=== PATIENT | male | born 1980 ===

== ENCOUNTER 2018-02-01 17:48 | Emergency (ER) | payer OTHER ==
[2018-02-01 17:53] VITALS: RESP 16
[2018-02-01] MEDS ORDERED: PROPARACAINE/FLUORESCEIN SOD 100 DROP/5 ML BOTTLE OD STA (18:04)
[2018-02-01] MEDS ORDERED: Tdap Vaccine 0.5 ml Vial (10-64 yrs) IM ONE ×2 (18:09→18:17)
[2018-02-01] MEDS ORDERED: PROPARACAINE/FLUORESCEIN SOD 100 DROP/5 ML BOTTLE ONE (18:12)
--- NOTE | 2018-02-01 18:21 | ED PDOC ---
HPI: Eye Injury/Pain Time Seen by Provider: 02/01/18 17:54 Chief Complaint (Nursing): Eye Problem Chief Complaint (Provider): Right Eye Pain and Right Sided facial Pain History Per: Porcelain Technician ([id number]) History/Exam Limitations: no limitations Onset/Duration Of Symptoms: Days Current Symptoms Are (Timing): Still Present Injury To Eye?: No Severity: None Quality: "Pain" Wears Contact Lens?: No Associated Symptoms: Pain. denies: FB Sensation, Discharge From Eye Additional Complaint(s): 37 year old male presents to the emergency department to be evaluated for right sided facial pain and right eye pain. Patient reports that on Wednesday while playing basketball he was elbowed in the face and has been experiencing worsening pain and swelling ever since. He further states that he has been experiencing intermittent blurry vision from his right eye. Patient also notes mild headache associated with symptoms. Denies loss of consciousness, dizziness , nausea, vomiting, foreign body sensation to right eye. No medications were taken prior to arrival. NO PRIMARY CARE PROVIDER Past Medical History Reviewed: Historical Data, Nursing Documentation, Vital Signs Vital Signs: Last Vital Signs Temp 99.4 F 02/01/18 17:50 Pulse 84 02/01/18 17:50 Resp 16 02/01/18 17:50 BP 147/90 02/01/18 17:50 Pulse Ox 98 02/01/18 17:50 - Medical History PMH: Gastritis - Surgical History Surgical History: No Surg Hx - Family History Family History: States: Unknown Family Hx - Social History Current smoker - smoking cessation education provided: No Alcohol: Social Drugs: Denies - Home Medications Home Medications: Ambulatory Orders Medication Instructions Recorded Acetaminophen [Acetaminophen 8 650 mg PO Q8 PRN #21 tablet.er 02/01/18 Hour] traMADol [Ultram] 50 mg PO TID PRN #12 tab 02/01/18 - Allergies Allergies/Adverse Reactions: Allergies Allergy/AdvReac Type Severity Reaction Status Date / Time No Known Allergies Allergy Verified 02/01/18 17:50 Review of Systems Constitutional: Positive for: Other (right sided facial pain) Eyes: Positive for: Pain (right eye ) Gastrointestinal: Negative for: Nausea, Vomiting Neurological: Negative for: Dizziness Physical Exam - Reviewed Nursing Documentation Reviewed: Yes Vital Signs Reviewed: Yes - Physical Exam Comments: GENERAL APPEARANCE: Patient is awake, alert, oriented x 3, in no acute distress. SKIN: Warm, dry; (-) cyanosis; (-) rash. HEAD: (-) scalp swelling or tenderness, (-) temporal artery tenderness. EYES: (-) conjunctival pallor, (-) scleral icterus, diffuse ecchymosis and tenderness of right eye orbit, conjunctival hyphemia to the lateral sclera of right eye, (-) fluorescein uptake. ENMT: (-) sinus tenderness; mucous membranes are moist, right maxillary tenderness, full ROM of jaw, dentition intact and non tender, pharynx clear, uvual midline NECK: (-) tenderness, (-) stiffness, (-) meningismus, (-) lymphadenopathy. CHEST AND RESPIRATORY: (-) rales, (-) rhonchi, (-) wheezes; breath sounds equal bilaterally. HEART AND CARDIOVASCULAR: (-) irregularity; (-) murmur, (-) gallop. ABDOMEN AND GI: Soft; (-) tenderness. EXTREMITIES: (-) deformity. NEURO AND PSYCH: Mental status as above. family consumer scientist: Pupils equal and reactive; EOMI ; (-) facial asymmetry; tongue and uvula midline. Strength and DTRs symmetric. - ECG O2 Sat by Pulse Oximetry: 98 (RA) Pulse Ox Interpretation: Normal Medical Decision Making Medical Decision Makin Initial Impression 37 year old male presenting with closed head injury, facial contusion r/o fracture Initial Plan: * CT head w/o Contrast * CT maxillofacial w/o contrast * Adacel 0.5 ml * Tylenol 650 mg PO * Flucaine eye drops 1 drop OD * Reevaluation 1827 Date of service: 02/01/2018 PROCEDURE: CT HEAD WITHOUT CONTRAST. HISTORY: s/p head injury playing basketball COMPARISON: 11/11/2011. TECHNIQUE: Axial computed tomography images were obtained through the head/brain without intravenous contrast. Radiation dose: Total exam DLP = 799.22 mGy-cm. This CT exam was performed using one or more of the following dose reduction techniques: Automated exposure control, adjustment of the mA and/or kV according to patient size, and/or use of iterative reconstruction technique. FINDINGS: HEMORRHAGE: No intracranial hemorrhage. BRAIN: No mass effect or edema. No atrophy or chronic microvascular ischemic changes. VENTRICLES: Unremarkable. No hydrocephalus. CALVARIUM: Unremarkable. PARANASAL SINUSES: Unremarkable as visualized. No significant inflammatory changes. MASTOID AIR CELLS: Unremarkable as visualized. No inflammatory changes. OTHER FINDINGS: Complex facial fractures which are incompletely visualized. These involve the floor of the right orbit, the medial wall of the right orbit. Fractures of the lamina papyracea also identified. Fluid/blood identified in maxillary sinus on the right as well as the ethmoid air cells and right frontal air cells and frontoethmoidal recess region. IMPRESSION: No acute intracranial abnormalities. No significant findings to account for the clinical presentation. Complex right periorbital and facial fractures identified although there are incompletely visualized Date of service: 02/01/2018 PROCEDURE: CT MAXILLOFACIAL BONES WITHOUT CONTRAST HISTORY: s/p head injury playing basketball COMPARISON: February 01, 2018. CT head. TECHNIQUE: Contiguous axial CT images of the maxillofacial bones were obtained. Coronal and sagittal reformats were generated. Radiation dose: Total exam DLP = 750.52 mGy-cm. This CT exam was performed using one or more of the following dose reduction techniques: Automated exposure control, adjustment of the mA and/or kV according to patient size, and/or use of iterative reconstruction technique. FINDINGS: NASAL BONES: Acute right nasal bone fracture. There is deviation of the bony nasal septum and there may be a small fracture. There is nasal turbinates thickening indicative of blood. ORBITS: No evidence of ocular/globe abnormality Fractures through the medial wall of the right orbit. Multiple fractures including a large free-floating fragment medial inferior aspect of the right orbital wall. There is no evidence of entrapment of the inferior rectus muscle which appears to be in anatomic position in there is a tissue plane between the inferior rectus muscle enlarged partially detached fragment of the adjacent medial and inferior orbital wall. Evidence of subtle nondisplaced fracture through the lateral wall of the right orbit Focal air identified in the retro Conal region adjacent to the optic nerve and this appears to indicate communication between nasal cavity and the right orbit. PARANASAL SINUSES/ MASTOIDS: Fluid/ blood identified in right ethmoid air cells. Blood identified in the right maxillary sinus. Layering of fluid/ blood in the frontal sinus on the right side. MAXILLA: Unremarkable. MANDIBLE/ TEMPOROMANDIBULAR JOINTS: Unremarkable. SKULL BASE: Fractures identified through the lamina papyracea. Medial and lateral pterygoid plates and adjacent musculature are unremarkable, unaffected by these fractures. TEMPORAL BONES: Middle ears and mastoid grossly unremarkable. OTHER FINDINGS: None. IMPRESSION: Complex fractures including the medial wall of the right orbit, the inferior wall of the right orbit. Fractures extend through the right nasal bone, possibly the bony nasal septum. Fractures through the lamina papyracea identified. In addition, there is a nondisplaced fracture of the lateral wall of the right orbit. Blood identified nasal turbinates, right maxillary sinus, right ethmoid air cells extending through the frontoethmoidal recess with fluid/ blood in the right frontal sinus. 1848 [facility]. [address] Apodaca, OMFS at [facility], who recommends outpatient follow up this 02/07/18 in OMFS clinic from -. Requests patient be supplied with CT images on CD. 1944 On re-evaluation, patient reports improvement of symptoms. On exam, patient remains AAOx3, in no acute distress. On exam, neck is supple, lungs CTA, cardiac RRR, neuro exam shows no focal findings. VSS, stable for discharge. Educated on sinus guarding. Patient given CT reports/images for follow up. Diagnostic results d/w the patient in great detail. Dx of facial/orbital fractures d/w the patient. Based on history, exam and diagnostic results plan will be for discharge and outpatient OMFS follow up. Advised to follow up with primary care physician in 1-2 days without fail. Advised to take medication as prescribed. Return to the emergency room at any time for any new or worsening symptoms. Patient states he fully agrees with and understands discharge instructions. States that he agrees with the plan and disposition. Verbalized and repeated discharge instructions and plan. I have given the patient opportunity to ask any additional questions. -------- Documented by Solnage Evans acting as a scribe for Kimberly Dale PA-C. All medical record entries made by the Scribe were at my direction and personally dictated by me. I have reviewed the chart and agree that the record accurately reflects my personal performance of the history, physical exam, medical decision making, and the department course for this patient. I have also personally directed, reviewed, and agree with the discharge instructions and disposition. Disposition - Clinical Impression Clinical Impression: Orbital fracture, Facial contusion, Conjunctival hemorrhage, Traumatic ecchymosis of right orbit - Patient ED Disposition Is Patient to be Admitted: No Counseled Patient/Family Regarding: Studies Performed, Diagnosis, Need For Followup, Rx Given - Disposition Disposition: Routine/Home Disposition Time: 19:47 Condition: STABLE Additional Instructions: [facility] [address] [place] [address] Programe fabián vikas para el 2017. La atencin mdica de emergencia que recibi hoy estaba dirigida a kitty sntomas agudos. Si le prescribieron algn medicamento, llnelo y tome segn las indicaciones. Kitty sntomas pueden tardar varios villatoro en resolverse. Regrese al Departamento de Emergencia si kitty sntomas empeoran, no mejoran o si tiene alg n otro problema. Comunquese con sales mdico en 2 villatoro para fabián reevaluacin y seguimiento / o llame a bairon de los mdicos / clnicas a los que deras referido y que figura en el formulario de Informacin de visitas del paciente que se incluye en sales paquete de isaías. Traiga todos los documentos que recibi al momento del isaías junto con los medicamentos que est tomando en sales visita de seguimiento. Nuestro tratamiento no puede reemplazar la atencin mdica en curso por parte de un proveedor de atencin primaria (PCP) fuera del departamento de emergencias. Prescriptions: Acetaminophen [Acetaminophen 8 Hour] 650 mg PO Q8 PRN #21 tablet.er PRN Reason: Pain, Moderate (4-7) traMADol [Ultram] 50 mg PO TID PRN #12 tab PRN Reason: Pain, Severe (8-10) Instructions: Black Eye, Skull and Facial Fractures, Eye Contusion (DC), Subconjunctival Hemorrhage Forms: [facility] ([place]i) Print Language: CITIZEN OF [place] Present On Arrival: Falls Or Trauma
--- NOTE | 2018-02-01 18:29 | CT ---
Date of service: 02/01/2018 PROCEDURE: CT HEAD WITHOUT CONTRAST. HISTORY: s/p head injury playing basketball COMPARISON: 11/11/2011. TECHNIQUE: Axial computed tomography images were obtained through the head/brain without intravenous contrast. Radiation dose: Total exam DLP = 799.22 mGy-cm. This CT exam was performed using one or more of the following dose reduction techniques: Automated exposure control, adjustment of the mA and/or kV according to patient size, and/or use of iterative reconstruction technique. FINDINGS: HEMORRHAGE: No intracranial hemorrhage. BRAIN: No mass effect or edema. No atrophy or chronic microvascular ischemic changes. VENTRICLES: Unremarkable. No hydrocephalus. CALVARIUM: Unremarkable. PARANASAL SINUSES: Unremarkable as visualized. No significant inflammatory changes. MASTOID AIR CELLS: Unremarkable as visualized. No inflammatory changes. OTHER FINDINGS: Complex facial fractures which are incompletely visualized. These involve the floor of the right orbit, the medial wall of the right orbit. Fractures of the lamina papyracea also identified. Fluid/blood identified in maxillary sinus on the right as well as the ethmoid air cells and right frontal air cells and frontoethmoidal recess region. IMPRESSION: No acute intracranial abnormalities. No significant findings to account for the clinical presentation. Complex right periorbital and facial fractures identified although there are incompletely visualized
--- NOTE | 2018-02-01 18:47 | CT ---
Date of service: 02/01/2018 PROCEDURE: CT MAXILLOFACIAL BONES WITHOUT CONTRAST HISTORY: s/p head injury playing basketball COMPARISON: February 01, 2018. CT head. TECHNIQUE: Contiguous axial CT images of the maxillofacial bones were obtained. Coronal and sagittal reformats were generated. Radiation dose: Total exam DLP = 750.52 mGy-cm. This CT exam was performed using one or more of the following dose reduction techniques: Automated exposure control, adjustment of the mA and/or kV according to patient size, and/or use of iterative reconstruction technique. FINDINGS: NASAL BONES: Acute right nasal bone fracture. There is deviation of the bony nasal septum and there may be a small fracture. There is nasal turbinates thickening indicative of blood. ORBITS: No evidence of ocular/globe abnormality Fractures through the medial wall of the right orbit. Multiple fractures including a large free-floating fragment medial inferior aspect of the right orbital wall. There is no evidence of entrapment of the inferior rectus muscle which appears to be in anatomic position in there is a tissue plane between the inferior rectus muscle enlarged partially detached fragment of the adjacent medial and inferior orbital wall. Evidence of subtle nondisplaced fracture through the lateral wall of the right orbit Focal air identified in the retro Conal region adjacent to the optic nerve and this appears to indicate communication between nasal cavity and the right orbit. PARANASAL SINUSES/ MASTOIDS: Fluid/ blood identified in right ethmoid air cells. Blood identified in the right maxillary sinus. Layering of fluid/ blood in the frontal sinus on the right side. MAXILLA: Unremarkable. MANDIBLE/ TEMPOROMANDIBULAR JOINTS: Unremarkable. SKULL BASE: Fractures identified through the lamina papyracea. Medial and lateral pterygoid plates and adjacent musculature are unremarkable, unaffected by these fractures. TEMPORAL BONES: Middle ears and mastoid grossly unremarkable. OTHER FINDINGS: None. IMPRESSION: Complex fractures including the medial wall of the right orbit, the inferior wall of the right orbit. Fractures extend through the right nasal bone, possibly the bony nasal septum. Fractures through the lamina papyracea identified. In addition, there is a nondisplaced fracture of the lateral wall of the right orbit. Blood identified nasal turbinates, right maxillary sinus, right ethmoid air cells extending through the frontoethmoidal recess with fluid/ blood in the right frontal sinus.
[2018-02-01 19:58] VITALS: BP 132/80; PULSE 81; TEMP 98.2; O2SAT 100
== END 2018-02-01 19:58 | disposition home or self-care (01) ==
LOC: H.ER 17:48
DX: S02.80XA Fracture of other specified skull and facial bones, unspecified side, initial encounter for closed fracture (principal); S06.9X0A Unspecified intracranial injury without loss of consciousness, initial encounter; S00.83XA Contusion of other part of head, initial encounter; H11.30 Conjunctival hemorrhage, unspecified eye; S00.11XA Contusion of right eyelid and periocular area, initial encounter; W50.0XXA Accidental hit or strike by another person, initial encounter; Y93.67 Activity, basketball; Z23 Encounter for immunization